=== PATIENT | male | born 1975 | race Caucasian/White ===

== ENCOUNTER 2017-01-23 16:15 | Outpatient (RCR) | payer OTHER | END 2017-04-02 | disposition home or self-care (01) | LOC: MKS.ESL.PT | DX: S46.012D Strain of muscle(s) and tendon(s) of the rotator cuff of left shoulder, subsequent encounter (principal); X50.1XXD Overexertion from prolonged static or awkward postures, subsequent encounter ==

== ENCOUNTER 2017-01-27 15:20 | Outpatient (RCR) | payer OTHER | END 2017-03-16 | LOC: WSOH | DX: S46.012A Strain of muscle(s) and tendon(s) of the rotator cuff of left shoulder, initial encounter (principal); X50.1XXA Overexertion from prolonged static or awkward postures, initial encounter; Y99.0 Civilian activity done for income or pay ==